=== PATIENT | male | born 1960 | race Caucasian/White ===

== ENCOUNTER 2017-07-20 18:01 | Emergency (ER) | payer SELFPAY ==
[~2017-07-20] VITALS: Ht 188 cm; Wt 76.4 kg
[~2017-07-20 18:01] MED LIST: BACTRIM,SEPT1 TABLET PO
[2017-07-20] MEDS ORDERED: VIBRAMYCIN100 MG PO (18:27)
[2017-07-20] MEDS ORDERED: BACTROBAN OINTM22 GM TP (18:32)
[2017-07-20 18:57] VITALS: BP 168/94
== END 2017-07-20 18:58 | disposition home or self-care (01) ==
LOC: EME 18:01
DX: L03.012 Cellulitis of left finger (principal); L02.512 Cutaneous abscess of left hand; F17.210 Nicotine dependence, cigarettes, uncomplicated
CPT/HCPCS: 87070; 87075; 87077; 87147; 87186; 87205; 99281; 99284